=== PATIENT | male | born 1960 | race Caucasian/White ===

== ENCOUNTER 2023-01-26 15:59 | Inpatient (IN) | payer OTHER, MEDICAID ==
[~2023-01-26] VITALS: Ht 193 cm; Wt 83.0 kg
[2023-01-26] MEDS ORDERED: HYDROcodone-ACET 5/325MG TAB PO ONE ×2 (18:45→22:15)
[2023-01-26] MEDS ORDERED: ONDANSETRON HCL 4 MG/2 ML VIAL IV ONE (23:00)
[2023-01-26] MEDS ORDERED: SODIUM CHLORIDE 0.9% 500 ML IV ONE (23:00)
[2023-01-26] MEDS ORDERED: HYDROmorphone HCL 2 MG/ML VL/or syr IV ONE (23:00)
[2023-01-26 23:21] LABS: Basophils # (auto) 0 10 ^3/uL (0-0.2); Basophils % (auto) 0.3 % (0.0-2.0); Eosinophils # (auto) 0 10 ^3/uL (0-0.8); Eosinophils % (auto) 0.1 % (0.0-7.0); Hematocrit 43.8 % (41.0-53.0); Hemoglobin 14.9 g/dL (13.5-17.5); Lymphocytes # (auto) 0.8 10 ^3/uL (0.4-5.4); Lymphocytes % (auto) 8.8 % (10.0-50.0); Mean Corpuscular Hemoglobin 31.4 pg (28.0-32.0); Mean Corpuscular Hgb Conc. 34.1 g/dL (32.0-36.0); Mean Corpuscular Volume 92.1 fL (80.0-100.0); Monocytes # (auto) 0.6 10 ^3/uL (0-1.3); Monocytes % (auto) 6.7 % (0.0-12.0); Neutrophils # (auto) 8.1 10 ^3/uL (1.6-8.6); Neutrophils % (auto) 84.1 % (37.0-80.0); Red Blood Cells 4.75 10^6/uL (4.5-5.90); White Blood Cell 9.6 10^3/uL (4.4-10.8)
[2023-01-26 23:43] LABS: BUN/Creatinine Ratio 12.2 (10.0-20.0); Calcium 9.1 mg/dL (8.5-10.1); Potassium 4.5 mmol/L (3.5-5.1)
[2023-01-26 23:46] LABS: Bilirubin, Total 0.8 mg/dL (0.2-1.0); Total Protein 7.5 g/dL (6.4-8.2)
[2023-01-27] MEDS ORDERED: HYDROmorphone HCL 2 MG/ML VL/or syr IV ONE (03:15)
[2023-01-27] MEDS ORDERED: DexAMETHasone SOD PHOS 10MG/1ML VIAL INJ IV ONE (03:30)
[2023-01-27] MEDS ORDERED: cefTRIAXone 1GM/50ML D5W 50 ML IV ONE (03:30)
[2023-01-27] MEDS ORDERED: ACETAMINOPHEN 325 MG TAB PO PRN (03:45)
[2023-01-27] MEDS: MORPHINE SULFATE INJ 2 MG/ml SYRG IV PRN ×4 (04:35→19:12)
[2023-01-27] MEDS: HYDROcodone-ACET 7.5/325MG TAB PO PRN ×3 (07:48→17:26)
[2023-01-27] MEDS ORDERED: ALBUTEROL SULF 2.5 MG/0.5ML(0.5%) NEB SOLN NEB PRN (10:15)
[2023-01-27] MEDS ORDERED: IPRATROPIUM BROM 0.5 MG/2.5ML INH SOL NEB PRN (10:15)
[2023-01-27] MEDS: ONDANSETRON HCL 4 MG/2 ML VIAL IV PRN ×2 (10:23→14:43)
[2023-01-27] MEDS: PANTOPRAZOLE 40 MG TAB PO SCH (10:24)
[2023-01-27] MEDS: ENOXAPARIN SOD 40 MG/0.4 ML SYRINGE SC SCH (10:24)
[2023-01-27 10:33] VITALS: BP 148/70
[2023-01-27 16:44] VITALS: BP_SYST 140; BP_SYST 164; BP_DIAS 75; BP_DIAS 88
[2023-01-27 20:00] VITALS: BP 143/79
[2023-01-27] MEDS: OXYCODONE W/ ACETAMINOPHEN 5/325MG TABLET PO PRN (21:13)
[2023-01-27 22:00] VITALS: BP 143/79
[2023-01-27] MEDS: TEMAZEPAM 15 MG CAP PO PRN (22:39)
[2023-01-28] MEDS: ONDANSETRON HCL 4 MG/2 ML VIAL IV PRN ×4 (00:43→16:17)
[2023-01-28] MEDS: MORPHINE SULFATE INJ 2 MG/ml SYRG IV PRN ×5 (00:49→21:19)
[2023-01-28] MEDS: OXYCODONE W/ ACETAMINOPHEN 5/325MG TABLET PO PRN ×4 (03:31→23:03)
[2023-01-28 05:00] VITALS: BP 134/82
[2023-01-28 06:55] LABS: Basophils # (auto) 0 10 ^3/uL (0-0.2); Basophils % (auto) 0.1 % (0.0-2.0); Eosinophils # (auto) 0 10 ^3/uL (0-0.8); Eosinophils % (auto) 0.1 % (0.0-7.0); Hematocrit 39.8 % (41.0-53.0); Hemoglobin 13.8 g/dL (13.5-17.5); Lymphocytes # (auto) 1.2 10 ^3/uL (0.4-5.4); Lymphocytes % (auto) 12.2 % (10.0-50.0); Mean Corpuscular Hemoglobin 31.3 pg (28.0-32.0); Mean Corpuscular Hgb Conc. 34.8 g/dL (32.0-36.0); Mean Corpuscular Volume 90.1 fL (80.0-100.0); Monocytes # (auto) 0.9 10 ^3/uL (0-1.3); Neutrophils # (auto) 7.7 10 ^3/uL (1.6-8.6); Neutrophils % (auto) 78.6 % (37.0-80.0); Nucleated Red Blood Cells % 0.2 %; Red Blood Cells 4.41 10^6/uL (4.5-5.90); Red Cell Distribution Width 13.7 % (11.8-14.3); White Blood Cell 9.8 10^3/uL (4.4-10.8)
[2023-01-28 07:18] LABS: Potassium 3.8 mmol/L (3.5-5.1)
[2023-01-28 07:28] LABS: Albumin 3.3 g/dL (3.4-5.0); BUN/Creatinine Ratio 10.6 (10.0-20.0); Bilirubin, Total 0.5 mg/dL (0.2-1.0); Calcium 8.9 mg/dL (8.5-10.1); Total Protein 6.3 g/dL (6.4-8.2)
[2023-01-28 09:10] LABS: Free T4 (Free Thyroxine) 0.87 ng/dL (0.89-1.76)
[2023-01-28 09:46] VITALS: BP 146/76
[2023-01-28] MEDS: PANTOPRAZOLE 40 MG TAB PO SCH (10:09)
[2023-01-28] MEDS: ENOXAPARIN SOD 40 MG/0.4 ML SYRINGE SC SCH (10:11)
[2023-01-28 14:21] VITALS: BP 120/67
[2023-01-28 16:54] VITALS: BP 135/77
[2023-01-28] MEDS ORDERED: CYANOCOBALAMIN (B-12) 1000 MCG/1 ML VIAL IM ONE ×2 (18:30→19:00)
[2023-01-28] MEDS ORDERED: ERGOCALCIFEROL 50,000 UNIT(1.25MG) CAP PO SCH (18:30)
[2023-01-28 22:00] VITALS: BP 155/89
[2023-01-28] MEDS: TEMAZEPAM 15 MG CAP PO PRN (23:03)
[2023-01-29] MEDS: MORPHINE SULFATE INJ 2 MG/ml SYRG IV PRN ×4 (01:53→18:40)
[2023-01-29] MEDS: ONDANSETRON HCL 4 MG/2 ML VIAL IV PRN ×4 (01:56→18:40)
[2023-01-29] MEDS: OXYCODONE W/ ACETAMINOPHEN 5/325MG TABLET PO PRN ×3 (04:41→15:12)
[2023-01-29 05:00] VITALS: BP 157/83
[2023-01-29 09:00] VITALS: BP 149/71
[2023-01-29] MEDS: ENOXAPARIN SOD 40 MG/0.4 ML SYRINGE SC SCH (09:46)
[2023-01-29] MEDS: PANTOPRAZOLE 40 MG TAB PO SCH (09:46)
[2023-01-29] MEDS ORDERED: CYANOCOBALAMIN (B-12) 1000 MCG/1 ML VIAL IM SCH (10:00)
[2023-01-29 13:00] VITALS: BP 122/73
[2023-01-29] MEDS ORDERED: ROSU10TA16 PO (14:35)
[2023-01-29 16:33] VITALS: BP 146/74
[2023-01-29 19:39] VITALS: BP 146/74
== END 2023-01-29 20:27 | disposition home or self-care (01) | DRG 185 ==
LOC: ER 15:59 → OVERFLOW 01-27 03:47 → WEST WING 01-27 16:17
PROVIDERS: ADMIT Nurse Practitioner; ATTEND Internal Medicine
DX: S22.41XA Multiple fractures of ribs, right side, initial encounter for closed fracture (principal); G89.4 Chronic pain syndrome; E78.5 Hyperlipidemia, unspecified; F17.210 Nicotine dependence, cigarettes, uncomplicated; M06.9 Rheumatoid arthritis, unspecified; M54.9 Dorsalgia, unspecified; Z20.822 Contact with and (suspected) exposure to COVID-19; R55 Syncope and collapse; J44.9 Chronic obstructive pulmonary disease, unspecified; E53.8 Deficiency of other specified B group vitamins; V29.888A Rider (driver) (passenger) of other motorcycle injured in other specified transport accidents, initial encounter; Y93.89 Activity, other specified; Y92.410 Unspecified street and highway as the place of occurrence of the external cause; Y99.8 Other external cause status
CPT/HCPCS: 36415; 70450; 71250; 72125; 80053; 80061; 82306; 82607; 83036; 83880; 84439; 84443; 84484; 85025; 87426; 96361; 96365; 96372; 96375; 96376; 97110; 97116; 97163; 97530; 99291; G0378; J0696; J1100; J2405